=== PATIENT | male | born 1965 | race Caucasian/White ===

== ENCOUNTER 2018-12-21 09:22 | Day surgery (SDC) | payer MEDICAID, OTHER ==
[~2018-12-21] VITALS: Ht 170.2 cm; Wt 78.8 kg
[~2018-12-21 09:22] MED LIST: NO MEDS.
[2018-12-21 10:51] VITALS: Ht 170.2 cm; Wt 78.8 kg
[2018-12-21 11:33] VITALS: BP 118/76; PULSE 41; RESP 18
--- NOTE | 2018-12-21 11:48 | PREAC ---
Date/Time of Note Date/Time of Note DATE: 12/21/18 TIME: 11:46 Anesthesia Eval and Record Evaluation Time Pre-Procedure Interview DATE: 12/21/18 TIME: 11:46 Age 53 Sex male NPO: 8 hrs Preoperative diagnosis SCREENING Planned procedure COLONOSCOPY Past Medical History Past Medical History: Includes Pulm: Smoking Hx Hepatic: Alcohol abuse Surgery & Anesthesia Issues No known issue Meds Anticoagulation: No Beta Essie within 24 hr: No Reason Beta Essie not given: Pt. not on B-Essie Reported Medications [No Meds.] No Conflict Check 01/01/15 Meds reviewed: Yes Allergies Coded Allergies: No Known Drug Allergies (Verified Allergy, Unknown, 01/01/15) Allergies Reviewed: Yes Labs/Studies Labs Reviewed: Reviewed by anesthesiologist test: N/A Pre-procedure Exam Last vitals Vital Signs Date Temp Pulse Resp B/P (MAP) Pulse Ox O2 O2 Flow FiO2 Time Delivery Rate 12/21/18 97.1 41 18 118/76 99 Room Air 11:33 (90) Airway: Adequate mouth opening, Adequate thyromental dist Mallampati: Mallampati II Teeth: Normal Lung: Normal Heart: Normal ASA Physical Status ASA physical status: 2 Emergency: None Planned Anesthetic General/MAC: MAC Planned Pain Management Parenteral pain med Pre-operative Attestations Prior to commencing anesthesia and surgery, the patient was re-evaluated, there was verification of: *The patient's identity *The results of appropriate recent lab work and preoperative vital signs *The above evaluation not changing prior to induction *Anesthetic plan, risk benefits, alternative and complications discussed with patient/family; questions answered; patient/family understands, accepts and wishes to proceed. NEENA VIRGEN Dec 21, 2018 11:48
[2018-12-21] MEDS ORDERED: PROPOFOL 40 ML ONE (11:49)
[2018-12-21] MEDS ORDERED: LIDOCAINE 2% (SDV) 5 ML INJ ONE (11:49)
[2018-12-21] MEDS ORDERED: EPHEDrine 25 MG/5 ML SYG ONE (11:49)
[2018-12-21] MEDS ORDERED: PROPOFOL 200 MG INJ ONE (11:49)
--- NOTE | 2018-12-21 12:31 | PAC ---
Date/Time of Note Date/Time of Note DATE: 12/21/18 TIME: 12:31 Post-Anesthesia Notes Post-Anesthesia Note Last documented vital signs Vital Signs Date Temp Pulse Resp B/P (MAP) Pulse Ox O2 O2 Flow FiO2 Time Delivery Rate 12/21/18 97.1 41 18 118/76 99 Room Air 1230 (90) Activity: WNL Respiratory function: WNL Cardiovascular function: WNL Mental status: Baseline Pain reasonably controlled: Yes Hydration appropriate: Yes Nausea/Vomiting absent: Yes NEENA VIRGEN Dec 21, 2018 12:31
[2018-12-21 12:34] VITALS: BP 117/71; PULSE 60; RESP 16
[2018-12-21] MEDS ORDERED: FENTAnyl 50 MCG/ML VIAL IV PRN (13:00)
[2018-12-21] MEDS ORDERED: hydrALAzine 20 MG INJ IV PRN (13:00)
[2018-12-21] MEDS ORDERED: LABETALOL HCL 20MG INJ IV PRN (13:00)
[2018-12-21] MEDS ORDERED: EPHEDrine 25 MG/5 ML SYG IV PRN (13:00)
== END 2018-12-21 15:13 | disposition home or self-care (01) ==
LOC: GIL 09:22
PROVIDERS: ATTEND Internal Medicine Gastroenterology
DX: Z12.11 Encounter for screening for malignant neoplasm of colon (principal); K64.8 Other hemorrhoids
CPT/HCPCS: 45378; Z7610